=== PATIENT | male | born 1995 | race Caucasian/White ===

== ENCOUNTER 2017-12-29 23:33 | Emergency (ER) | payer OTHER ==
--- NOTE | 2017-12-29 23:54 | CPEKG ---
Heart Rate: 67 RR Interval: 896 P-R Interval: 164 QRSD Interval: 98 QT Interval: 372 QTC Interval: 393 P [place]: 64 QRS [place]: 74 T Wave [place]: 33 EKG Severity - OTHERWISE NORMAL ECG - EKG Impression: SINUS ARRHYTHMIA, RATE 57-79 Electronically Signed By: Richard Pettit 30-Dec-2017 07:04:38
[2017-12-30 00:12] LABS: PLATELET COUNT 374 10^3/uL (150-400)
--- NOTE | 2017-12-30 00:49 | EDPHY ---
H & P Stated Complaint: CP intermittantly since Mon when resting started to take sarms 11/30 Time Seen by Provider: 12/29/17 23:45 HPI/ROS: Chief complaint: Chest discomfort History of present illness: This is a 22-year-old male who presents to the emergency department for chest discomfort. Patient reports the onset of symptoms approximately 4 days ago. The discomfort is in the left, upper aspect of the chest. It is described as a soreness. It has started to worsen. He is now developing a little bit of shortness of breath. He denies precipitating factors. Symptoms are worse when he rests, better with exertion, no other alleviating or aggravating factors. Denies other associated signs or symptoms including no fevers, no cold symptoms, no pain or swelling in the legs. He is using a lifting supplement called SARMS which appears to be a testosterone analog for the last 3 weeks, he is not sure if this is contributing. Review of systems: A 10 point review of systems was obtained and other than described above was negative - Personal History Current Tetanus/Diphtheria Vaccine: Yes Current Tetanus Diphtheria and Acellular Pertussis (TDAP): Yes - Medical/Surgical History Hx Asthma: No Hx Chronic Respiratory Disease: No Hx Diabetes: No Hx Cardiac Disease: No Hx Renal Disease: No Hx Cirrhosis: No Hx Alcoholism: No Hx HIV/AIDS: No Hx Splenectomy or Spleen Trauma: No Other PMH: tonsillectomy - Social History Smoking Status: Never smoked - Physical Exam Exam: General Appearance: Alert, nontoxic. Eyes: Pupils equal and round no pallor or injection. ENT, Mouth: Mucous membranes moist. Respiratory: There are no retractions, lungs are clear to auscultation. Cardiovascular: Regular rate and rhythm. Gastrointestinal: Abdomen is soft and non tender, no masses, bowel sounds normal. Neurological: Alert and oriented x4. Strength and sensation intact and symmetrical. Skin: Warm and dry, no rashes. Musculoskeletal: Neck is supple non tender. Extremities are symmetrical, full range of motion. Psychiatric: Patient is oriented X 3, there is no agitation. Constitutional: Initial Vital Signs Temperature (C) 37.3 C 12/29/17 23:35 Heart Rate 74 12/29/17 23:35 Respiratory Rate 16 12/29/17 23:35 Blood Pressure 157/89 H 12/29/17 23:35 O2 Sat (%) 97 12/29/17 23:35 O2 Delivery Mode Room Air Allergies/Adverse Reactions: No Known Allergies Allergy (Verified 12/29/17 23:40) Home Medications: Medication Instructions Recorded NK [No Known Home Meds] 12/29/17 Medical Decision Making - Diagnostics Imaging: I viewed and interpreted images myself ED Course/Re-evaluation: Patient seen under the supervision of my secondary supervising physician Dr. Richard Pettit. Patient presents to the emergency department for evaluation of chest pain. Associated mild shortness of breath. He has a rather atypical story. Vital signs are stable. Physical exam is benign. Blood studies, EKG and chest x-ray unremarkable. I believe patient is appropriate for discharge home. Home care is discussed. He is asked to discontinue all supplements he is on. He is to follow up with [facility] for recheck. Return precautions are given. Differential Diagnosis: Included but not limited to musculoskeletal pain, reflux, pneumothorax, pulmonary infections, pulmonary embolism, cardiac disturbances, unlikely ACS - Data Points Laboratory Results: Laboratory Results 12/29/17 23:59 12/29/17 23:59 12/29/17 12/29/17 12/29/17 23:59 23:59 23:59 WBC 6.77 10^3/uL 10^3/uL (3.80-9.50) RBC 5.30 10^6/uL 10^6/uL (4.40-6.38) Hgb 15.7 g/dL g/dL (13.7-17.5) Hct 46.0 % % (40.0-51.0) MCV 86.8 fL fL (81.5-99.8) MCH 29.6 pg pg (27.9-34.1) MCHC 34.1 g/dL g/dL (32.4-36.7) RDW 13.2 % % (11.5-15.2) Plt Count 374 10^3/uL 10^3/uL (150-400) MPV 9.5 fL fL (8.7-11.7) Neut % (Auto) 58.5 % % (39.3-74.2) Lymph % (Auto) 29.8 % % (15.0-45.0) [place] % (Auto) 9.7 % % (4.5-13.0) Eos % (Auto) 0.9 % % (0.6-7.6) Baso % (Auto) 0.7 % % (0.3-1.7) Nucleat RBC Rel Count 0.0 % % (0.0-0.2) Absolute Neuts (auto) 3.95 10^3/uL 10^3/uL (1.70-6.50) Absolute Lymphs (auto) 2.02 10^3/uL 10^3/uL (1.00-3.00) Absolute Monos (auto) 0.66 10^3/uL 10^3/uL (0.30-0.80) Absolute Eos (auto) 0.06 10^3/uL 10^3/uL (0.03-0.40) Absolute Basos (auto) 0.05 10^3/uL 10^3/uL (0.02-0.10) Absolute Nucleated RBC 0.00 10^3/uL 10^3/uL (0-0.01) Immature Gran % 0.4 % % (0.0-1.1) Immature Gran # 0.03 10^3/uL 10^3/uL (0.00-0.10) D-Dimer < 0.27 ug/mLFEU ug/mLFEU (0.00-0.50) Sodium 144 mEq/L mEq/L (135-145) Potassium 3.5 mEq/L mEq/L (3.5-5.2) Chloride 103 mEq/L mEq/L (97-110) Carbon Dioxide 25 mEq/l mEq/l (22-31) Anion Gap 16 mEq/L mEq/L (8-16) BUN 20 mg/dL mg/dL (7-23) Creatinine 1.1 mg/dL mg/dL (0.7-1.3) Estimated GFR > 60 Glucose 97 mg/dL mg/dL (70-100) Calcium 9.0 mg/dL mg/dL (8.5-10.4) Troponin I < 0.012 ng/mL ng/mL (0.000-0.034) Departure - Departure Disposition: Home, Routine, Self-Care Clinical Impression: Chest pain Condition: Good Instructions: Chest Pain (ED) Additional Instructions: Follow-up with a primary care doctor in 1-2 days for recheck Discontinue the use of supplements If symptoms worsen or new symptoms develop return to the emergency room for recheck Referrals: NONE *PRIMARY CARE P,. [Primary Care Provider] - As per Instructions [facility] [Clinic] - As per Instructions
[2017-12-30 01:17] VITALS: RESP 18
[2017-12-30 01:19] VITALS: BP 130/81; PULSE 70; TEMP 98.4; O2SAT 96
== END 2017-12-30 01:19 | disposition home or self-care (01) ==
DX: R07.9 Chest pain, unspecified (principal)